=== PATIENT | female | born 1955 | race Two or more races ===

== ENCOUNTER 2020-02-21 09:38 | Day surgery (SDC) | payer OTHER ==
[~2020-02-21 09:38] MED LIST: AVAPRO300 MG PO; CARVEDILOL25 MG; HYDROCHLOROTHIA25 MG PO; NORVASC5 MG PO
[2020-02-21] MEDS ORDERED: KETO10TA2 PO (15:57)
[2020-02-21] MEDS ORDERED: PERCOCET 5-3251 EACH PO (15:57)
[2020-02-21] MEDS ORDERED: NEURONTIN300 MG PO (15:58)
== END 2020-02-21 19:55 | disposition home or self-care (01) ==
LOC: CIR.AMB 09:38
PROVIDERS: ATTEND Surgery
DX: K64.4 Residual hemorrhoidal skin tags (principal); K64.8 Other hemorrhoids; Z20.828 Contact with and (suspected) exposure to other viral communicable diseases